=== PATIENT | female | born 1950 | race Caucasian/White ===

== ENCOUNTER 2020-03-06 19:56 | Emergency (ER) | payer OTHER ==
[~2020-03-06] VITALS: Ht 157.5 cm; Wt 70.3 kg
[2020-03-06 20:10] VITALS: Ht 157.5 cm; Wt 70.3 kg
[2020-03-07 00:05] VITALS: BP 144/67
== END 2020-03-07 00:05 | disposition home or self-care (01) ==
LOC: ED 19:56
DX: M54.5 Low back pain (principal); M79.604 Pain in right leg
CPT/HCPCS: J1885